=== PATIENT | female | born 1990 | race Caucasian/White ===

== ENCOUNTER 2025-10-27 08:08 | Emergency (ER) | payer SELFPAY ==
[~2025-10-27] VITALS: Ht 167.6 cm; Wt 73.0 kg
[2025-10-27 08:19] VITALS: O2SAT 99
[2025-10-27] MEDS ORDERED: AMOX1TAB16 MT (09:20)
[2025-10-27 09:28] VITALS: BP 121/75; PULSE 84; RESP 17; TEMP 36.9; O2SAT 99
== END 2025-10-27 09:32 | disposition home or self-care (01) ==
LOC: EDBD 08:08 → ER 08:08
DX: J02.9 Acute pharyngitis, unspecified (principal); H92.02 Otalgia, left ear
CPT/HCPCS: 99283